=== PATIENT | female | born 1995 | race American Indian/Alaskan Native ===

== ENCOUNTER 2019-06-17 10:20 | Emergency (ER) | payer MEDICAID ==
[2019-06-17 10:37] VITALS: BP 136/87
[2019-06-17 11:06] LABS: Bilirubin,Urine NEG (Negative); Blood,Urine MOD (Negative); Color,Urine Yellow (Yellow); Mucus,Urine FEW /HPF; Protein,Urine <15 mg/dL mg/dL (Negative); Urobilinogen,Urine < 2.0 mg/dL (<2.0); WBC,Urine < 1.0 /HPF (0.0-6.0)
[2019-06-17 11:20] LABS: Basophils % (Auto) 0.6 % (0.0-1.8); Eosinophils # (Auto) 0.2 K/mm3 (0.0-0.4); Eosinophils % (Auto) 2.9 % (0.0-4.3); Hemoglobin 12.6 gm/dl (10.1-14.3); Lymphocytes # (Auto) 1.8 K/mm3 (1.2-5.4); Lymphocytes % (Auto) 31.8 % (13.4-35.0); Mean Corpuscular HGB Conc 34 % (30-34); Mean Corpuscular Volume 87 fl (79-97); Monocytes # (Auto) 0.4 K/mm3 (0.0-0.8); Monocytes % (Auto) 7.7 % (0.0-7.3); Platelet Count 180 K/mm3 (140-440); Red Blood Count 4.24 M/mm3 (3.65-5.03); Red Cell Distribution Width 13.9 % (13.2-15.2)
--- NOTE | 2019-06-17 14:55 | Ultrasound Report ---
TRANSABDOMINAL AND TRANSVAGINAL OB PELVIC ULTRASOUND INDICATION / CLINICAL INFORMATION: Pelvic pain and cramping. COMPARISON: None available. FINDINGS: Transabdominal: The uterus measures 7.1 x 4.8 x 5.6 cm. The endometrial stripe measures 1.8 cm and is mildly heterogeneous without a visible intrauterine gestational sac. The right ovary measures 5.1 x 2.6 x 2.6 cm and contains a 1.6 cm corpus luteal cyst. The left ovary measures 2.6 x 2.1 x 1.6 cm. No free fluid is seen. I do not identify an extraovarian mass. Transvaginal: The endometrial stripe measures 1.2 cm AP and is heterogeneous. I do not identify an in trauterine gestational sac. No fibroids are seen. The left ovary measures 2.8 x 2.0 x 1.7 cm and the right ovary 4.2 x 2.8 x 4.0 cm. There is a 2.1 cm corpus luteal cyst in the right ovary. Normal blood flow is present both ovaries on Doppler exam. I see no evidence of an extraovarian mass, free fluid or other abnormality. IMPRESSION: 1. Heterogeneous endometrium without evidence of intrauterine or extrauterine . 2. 2.1 cm corpus luteal cyst in the right ovary. Signer Name: Rnoen Read MD Signed: 06/17/2019 2:51 PM Workstation Name: [id number]
--- NOTE | 2019-06-17 15:13 | Emergency Department Report ---
ED Female HPI - General Chief complaint: Vaginal Bleeding Stated complaint: 8WKS /BLEEDING/PAIN Source: patient Mode of arrival: Ambulatory Limitations: No Limitations - History of Present Illness Initial comments: 24-year-old -[place] female in no acute distress and nontoxic in appearance presents to the emergency room for abdominal cramping and vaginal bleeding since yesterday. Patient states that she is approximately 8 weeks . Patient reports that her last menstrual period was 04/22/2019. She is 1 para 0. She is followed by [facility] and has spoke to them and they recommend for her to follow-up in the ER. Patient states that her bleeding became heavy today she has gone through 2 pads today and 1 pad yesterday. Patient currently has no cramping. She has no past medical history she is currently taking her vitamins and has no known drug allergies. MD Complaint: vaginal bleeding Onset/Timin -: days(s) Radiation: suprapubic Severity scale (0 -10): 0 Quality: cramping Consistency: now resolved Worsens with: none Are you Now?: Yes Last Menstrual Period: 04/22/19 EDC: 01/27/20 - Related Data Allergies Allergy/AdvReac Type Severity Reaction Status Date / Time No Known Allergies Allergy Verified 06/17/19 10:33 ED Review of Systems ROS: Stated complaint: 8WKS /BLEEDING/PAIN Other details as noted in HPI Comment: All other systems reviewed and negative ED Past Medical Hx - Past Medical History Previous Medical History?: No - Surgical History Past Surgical History?: No - Social History Smoking Status: Never Smoker Substance Use Type: None ED Physical Exam - General Limitations: No Limitations General appearance: alert, in no apparent distress - Head Head exam: Present: atraumatic, normocephalic - Eye Eye exam: Present: normal appearance - ENT ENT exam: Present: mucous membranes moist - Neck Neck exam: Present: normal inspection - GI/Abdominal GI/Abdominal exam: Present: soft, normal bowel sounds - Extremities Exam Extremities exam: Present: normal inspection - Back Exam Back exam: Present: normal inspection - Neurological Exam Neurological exam: Present: alert, oriented X3 - Psychiatric Psychiatric exam: Present: normal affect, normal mood - Skin Skin exam: Present: warm, dry, intact, normal color. Absent: rash ED Course Vital Signs 06/17/19 10:35 Temperature 98.0 F Pulse Rate 106 H Respiratory 17 Rate Blood Pressure 136/87 O2 Sat by Pulse 100 Oximetry ED Medical Decision Making - Lab Data Result diagrams: 06/17/19 10:58 Laboratory Tests 06/17/19 06/17/19 06/17/19 10:51 10:58 10:58 WBC 5.6 RBC 4.24 Hgb 12.6 Hct 37.0 MCV 87 MCH 30 MCHC 34 RDW 13.9 Plt Count 180 Lymph % (Auto) 31.8 Jones % (Auto) 7.7 H Eos % (Auto) 2.9 Baso % (Auto) 0.6 Lymph # 1.8 Jones # 0.4 Eos # 0.2 Baso # 0.0 Seg Neutrophils % 57.0 Seg Neutrophils # 3.2 HCG, Quant 5738 H Urine Color Yellow Urine Turbidity Clear Urine pH 5.0 Ur Specific [place] 1.015 Urine Protein <15 mg/dl Urine Glucose (UA) Neg Urine Ketones Neg Urine Blood Mod Urine Nitrite Neg Urine Bilirubin Neg Urine Urobilinogen < 2.0 Ur Leukocyte Esterase Neg Urine WBC (Auto) < 1.0 Urine RBC (Auto) 3.0 U Epithel Cells (Auto) < 1.0 Urine Mucus Few Blood Type 06/17/19 10:58 WBC RBC Hgb Hct MCV MCH MCHC RDW Plt Count Lymph % (Auto) Jones % (Auto) Eos % (Auto) Baso % (Auto) Lymph # Jones # Eos # Baso # Seg Neutrophils % Seg Neutrophils # HCG, Quant Urine Color Urine Turbidity Urine pH Ur Specific [place] Urine Protein Urine Glucose (UA) Urine Ketones Urine Blood Urine Nitrite Urine Bilirubin Urine Urobilinogen Ur Leukocyte Esterase Urine WBC (Auto) Urine RBC (Auto) U Epithel Cells (Auto) Urine Mucus Blood Type A POSITIVE - Radiology Data Radiology results: report reviewed Print Report Referring Physician:TRAM STEINERPatient Name:JASIEL BEYERESPatient ID:[id number] of :[id number]:FemaleAccession:[id number] Date:[id number] Status:Finalized Findings [facility] [address] [place] [address] Ultrasound Report Signed Patient: JASIEL ANDERSEN MR#: [id number] : 1995 Acct:[id number] Age/Sex: 24 / F ADM Date: 06/17/19 Loc: ED Attending Dr: Ordering Physician: LUIS FERNANDO TINEO Date of Service: 06/17/19 Procedure(s): OB transvaginal Accession Number(s): [id number] cc: LUIS FERNANDO TINEO TRANSABDOMINAL AND TRANSVAGINAL OB PELVIC ULTRASOUND INDICATION / CLINICAL INFORMATION: Pelvic pain and cramping. COMPARISON: None available. FINDINGS: Transabdominal: The uterus measures 7.1 x 4.8 x 5.6 cm. The endometrial stripe measures 1.8 cm and is mildly heterogeneous without a visible intrauterine gestational sac. The right ovary measures 5.1 x 2.6 x 2.6 cm and contains a 1.6 cm corpus luteal cyst. The left ovary measures 2.6 x 2.1 x 1.6 cm. No free fluid is seen. I do not identify an extraovarian mass. Transvaginal: The endometrial stripe measures 1.2 cm AP and is heterogeneous. I do not identify an intrauterine gestational sac. No fibroids are seen. The left ovary measures 2.8 x 2.0 x 1.7 cm and the right ovary 4.2 x 2.8 x 4.0 cm. There is a 2.1 cm corpus luteal cyst in the right ovary. Normal blood flow is present both ovaries on Doppler exam. I see no evidence of an extraovarian mass, free fluid or other abnormality. IMPRESSION: 1. Heterogeneous endometrium without evidence of intrauterine or extrauterine . 2. 2.1 cm corpus luteal cyst in the right ovary. Signer Name: Ronen Read MD Signed: 06/17/2019 2:51 PM Workstation Name: [id number] Transcribed By: RT Dictated By: Ronen Read MD Electronically Authenticated By: Ronen Read MD Signed Date/Time: 06/17/19 1451 DD/ 1446 TD/TT: - Medical Decision Making 24-year-old -[place]namese female in no acute distress and nontoxic in appearance presents to the emergency room for abdominal cramping and vaginal bleeding since yesterday. Patient states that she is approximately 8 weeks . Patient reports that her last menstrual period was 04/22/2019. She is 1 para 0. She is followed by [facility] and has spoke to them and they recommend for her to follow-up in the ER. Patient states that her bleeding became heavy today she has gone through 2 pads today and 1 pad yesterday. Patient currently has no cramping. She has no past medical history she is currently taking her vitamins and has no known drug allergies. Ultrasound shows no intrauterine or extrauterine gestation. Does show some thickening of uterus wall suggestion of a spontaneous miscarriage. I discussed with patient she will need to follow-up with [facility] to have a repeat of her hCG. I discussed the patient she needs to do this in the next 2 to 3 days. Patient verbalized understanding Critical care attestation.: If time is entered above; I have spent that time in minutes in the direct care of this critically ill patient, excluding procedure time. ED Disposition Clinical Impression: Spontaneous miscarriage Disposition: DC-01 TO HOME OR SELFCARE Is pt being admited?: No Does the pt Need Aspirin: No Condition: Stable Instructions: Spontaneous Miscarriage (ED) Additional Instructions: Ultrasound shows no intrauterine gestation. It appears that you have had a spontaneous miscarriage. I highly recommend for you to follow-up with [facility] in 2 to 3 days for repeat hCG. You can take Tylenol as needed for pain manag ement. Referrals: PRIMARY CARE, [Primary Care Provider] - 3-5 Days [facility] [Provider Group] - 3-5 Days Forms: Work/School Release Form(ED)
== END 2019-06-17 15:23 | disposition home or self-care (01) ==
LOC: ED 10:20
DX: O03.9 Complete or unspecified spontaneous abortion without complication (principal); Z3A.01 Less than 8 weeks gestation of pregnancy
CPT/HCPCS: 36415; 76801; 76817; 81001; 84702; 85025; 86900; 86901